=== PATIENT | female | born 1995 | race American Indian/Alaskan Native ===

== ENCOUNTER 2018-05-30 14:15 | Emergency (ER) | payer SELFPAY ==
[2018-05-30 14:49] VITALS: BP 114/81
--- NOTE | 2018-05-30 15:30 | Emergency Department Report ---
Chief Complaint: Medical Clearance Stated Complaint: MEDS Time Seen by Provider: 05/30/18 15:24 - HPI History of Present Illness: 22 y o female presents was recently seen at [place] [facility] for treatment of trichomoniasis was sent here to the ED due to patient having an allergic reaction to metronadizole. Patient was sent here for treatment. Patient brought in test results today in that she had positive for trichomoniasis. Patient states that she has Flagyl about last summer which causes her to have a rash. He denies fevers/chills/abdominal pain/nausea vomiting - ROS Review of Systems: as noted in HPI - Exam Vital Signs: Vital Signs 05/30/18 14:47 Temperature 98.5 F Pulse Rate 70 Respiratory 16 Rate Blood Pressure 114/81 [Right] O2 Sat by Pulse 100 Oximetry MSE screening note: Focused history and physical exam performed. Due to findings the following was ordered: ED Medical Decision Making - Medical Decision Making 22-year-old who present with treatment for Trichomonasis Discussed the patient and that other than metronidazole and tinnitus so which is another family of metronidazole there is no treatment for trichomoniasis as this is a parasite sexually transmitted. Discussed the patient was discharged home with Benadryl and to take a Benadryl before and after taking tinidazole She was prescribed tinidazole 2 grams 1 time. Discussed the patient to return to ED if any worsening symptoms. ED Disposition for MSE Clinical Impression: Trichomonal cervicitis Disposition: DC-01 TO HOME OR SELFCARE Is pt being admited?: No Does the pt Need Aspirin: No Condition: Stable Instructions: Cervicitis (ED), Trichomoniasis (ED) Additional Instructions: f/u with pcp take benadryl before taking your meds and after taking the medication Prescriptions: diphenhydrAMINE [Benadryl CAP] 25 mg PO Q8HR PRN 3 Days #20 capsule PRN Reason: Allergic Reaction Tinidazole [Tindamax] 2,000 mg PO QDAY #1 tab Referrals: CHRIS GUTIÉRREZ MD [Referring] - 3-5 Days [facility] [Outside] - 3-5 Days [facility] [Outside] - 3-5 Days Forms: STI Treatment and Prevention Time of Disposition: 15:30
== END 2018-05-30 15:52 | disposition home or self-care (01) ==
LOC: ED 14:15
DX: A59.09 Other urogenital trichomoniasis (principal); Z88.1 Allergy status to other antibiotic agents
CPT/HCPCS: 99281